=== PATIENT | male | born 1990 | race American Indian/Alaskan Native ===

== ENCOUNTER 2016-07-26 04:31 | Inpatient (IN) | payer MEDICARE, MEDICAID ==
[2016-07-26] MEDS ORDERED: Sodium Chloride 0.9% 1,000 ML IV ONE (04:42)
[2016-07-26] MEDS ORDERED: carBAMazepine 200 MG Cap.ER PO ONE ×2 (04:43→05:00)
--- NOTE | 2016-07-26 04:45 | EDM.PDOC ---
ED HPI NEURO - General Chief Complaint: Neurological Problem Stated Complaint: COMING BY AMB Time Seen by Provider: 07/26/16 04:40 Source of Information: Reports: EMS History Limitations: Reports: No limitations - History of Present Illness INITIAL COMMENTS - FREE TEXT/NARRATIVE: 26 yo [place] Male observed by Mom to have 3 seizures. PMHx. Epilepsy and takes Keppra and Tegretol. Pt. not taking Tegretol X 2 weeks and Has only one Keppra tab remaining. No head injury and No loss of urine or biting tongue Symptom Onset Date: 07/26/16 Symptom Onset Time: 03:00 Timing/Duration: Reports: Hour(s): Location (Neuro Complaint): Reports: generalized Severity: moderate Context, General: Reports: Other (non compliant with medication) Associated Symptoms: Reports: no other symptoms - Related Data Allergies/ADRs: Allergies Allergy/AdvReac Type Severity Reaction Status Date / Time amoxicillin [Amoxicillin] Allergy Rash Verified 07/26/16 04:33 blueberry [Blueberry] Allergy Rash Verified 07/26/16 04:33 fosphenytoin sodium Allergy Rash Verified 07/26/16 04:33 [From Cerebyx] Home Meds: Home Meds carBAMazepine [Carbamazepine] 300 mg PO BID 05/31/13 [History] levETIRAcetam [Levetiracetam] 1,000 mg PO BID 07/26/16 [History] Past Medical History - Past Health History Medical/Surgical History: Denies Medical/Surgical History Neurological History: Reports: Seizure Psychiatric History: Reports: Addiction Social & Family History - Family History Family Medical History: Unobtainable - Tobacco Use Smoking Status *Q: Never Smoker Second Hand Smoke Exposure: No - Alcohol Use Days Per Week of Alcohol Use: 0 - Recreational Drug Use Recreational Drug Use: No Drug Use in Last 12 Months: Yes Recreational Drug Type: Reports: Marijuana/Hashish Recreational Drug Use Frequency: Rarely - Living Situation & Occupation Living situation: Reports: with family Occupation: unemployed ED ROS GENERAL - Review of Systems Review Of Systems: See Below Constitutional: Reports: no symptoms HEENT: Reports: No symptoms Respiratory: Reports: No Symptoms Cardiovascular: Reports: No symptoms Endocrine: Reports: no symptoms GI/Abdominal: Reports: No symptoms : Reports: no symptoms Musculoskeletal: Reports: no symptoms Skin: Reports: no symptoms Neurological: Reports: Seizure Psychiatric: Reports: No symptoms Hematologic/Lymphatic: Reports: no symptoms Immunologic: Reports: no symptoms ED EXAM, NEURO - Physical Exam Exam: See Below Exam Limited By: No limitations General Appearance: alert, WD/WN, no apparent distress Eye Exam: bilateral eye: PERRL Ears: normal external exam Nose: normal inspection Throat/Mouth: Normal inspection, Normal lips Head Exam: atraumatic, normocephalic Neck: normal inspection, supple, non-tender, full range of motion Respiratory/Chest: no respiratory distress, lungs clear, normal breath sounds Cardiovascular: normal peripheral pulses, regular rate, rhythm GI/Abdominal: normal bowel sounds, soft, non tender Neurological: alert Back Exam: normal inspection Extremities: normal inspection, normal range of motion Psychiatric: normal affect Skin Exam: Warm, No rash Course - Vital Signs Text/Narrative:: Pt. had witnessed generalized seizure in ED lasting approx 45 seconds. Discussed case with Dr. Peter to admit Last Recorded V/S: Last Vital Signs Temp 36.2 C 07/26/16 04:33 Pulse 96 07/26/16 04:33 Resp 18 07/26/16 04:33 BP 107/65 07/26/16 04:33 Pulse Ox 99 07/26/16 04:33 - Orders/Labs/Meds Orders: Active Orders 24 hr Category Date Time Status CARBAMAZEPINE [REF] Stat Lab 07/26/16 04:50 Received KEPPRA [REF] Stat Lab 07/26/16 04:50 Received Sodium Chloride 0.9% [Normal Saline] 1,000 ml Med 07/26/16 04:42 Active IV .BOLUS Medication Orders Sodium Chloride (Normal Saline) 1,000 mls @ 999 mls/hr IV .BOLUS ONE Stop: 07/26/16 05:42 Last Admin: 07/26/16 05:03 Dose: 999 mls/hr Labs: Laboratory Tests 07/26/16 07/26/16 07/26/16 Range/Units 04:50 04:50 05:00 WBC 8.5 (5.0-10.0) 10^3/uL RBC 4.34 L (4.6-6.2) 10^6/uL Hgb 13.4 L (14.0-18.0) g/dL Hct 40.0 (40.0-54.0) % MCV 92.2 (80-100) fL MCH 30.9 (27.0-34.0) pg MCHC 33.5 (33.0-35.0) g/dL Plt Count 257 (150-450) 10^3/uL Neut % (Auto) 44.7 (42.2-75.2) % Lymph % (Auto) 38.1 (20.5-50.1) % [place] % (Auto) 11.0 H (2-8) % Eos % (Auto) 5.7 H (1.0-3.0) % Baso % (Auto) 0.5 (0.0-1.0) % Sodium 135 (135-145) mmol/L Potassium 3.7 (3.6-5.0) mmol/L Chloride 98 L (101-111) mmol/L Carbon Dioxide 26.0 (21.0-31.0) mmol/L Anion Gap 14.7 BUN 17 (7-18) mg/dL Creatinine 0.8 (0.6-1.3) mg/dL Est Cr Clr Drug Dosing TNP Estimated GFR (MDRD) > 60 BUN/Creatinine Ratio 21.25 Glucose 84 (74-105) mg/dL Calcium 8.2 L (8.4-10.2) mg/dl Total Bilirubin 0.5 (0.2-1.0) mg/dL AST 28 (10-42) IU/L ALT 30 (10-60) IU/L Alkaline Phosphatase 81 (42-121) IU/L Total Protein 7.4 (6.7-8.2) g/dl Albumin 4.0 (3.2-5.5) g/dl Globulin 3.4 Albumin/Globulin Ratio 1.18 Urine Color Yellow (YELLOW) Urine Appearance Clear (CLEAR) Urine pH 5.5 (5.0-9.0) Ur Specific [place] 1.015 (1.005-1.030) Urine Protein Trace H (NEGATIVE) Urine Glucose (UA) Negative (NEGATIVE) Urine Ketones Negative (NEGATIVE) Urine Occult Blood Trace-lysed H (NEGATIVE) Urine Nitrite Negative (NEGATIVE) Urine Bilirubin Negative (NEGATIVE) Urine Urobilinogen 1.0 (0.2-1.0) mg/dL Ur Leukocyte Esterase Negative (NEGATIVE) Urine RBC 0-5 /HPF Urine WBC 0-5 (0-5/HPF) /HPF Ur Epithelial Cells Few /HPF Urine Bacteria Few (0-FEW/HPF) /HPF Urine Opiates Screen (NEGATIVE) Ur Oxycodone Screen (NEGATIVE) Urine Methadone Screen (NEGATIVE) Ur Barbiturates Screen (NEGATIVE) U Tricyclic Antidepress (NEGATIVE) Ur Phencyclidine Scrn (NEGATIVE) Ur Amphetamine Screen (NEGATIVE) U Methamphetamines Scrn (NEGATIVE) Urine MDMA Screen (NEGATIVE) U Benzodiazepines Scrn (NEGATIVE) Urine Cocaine Screen (NEGATIVE) U Marijuana (THC) Screen (NEGATIVE) Ethyl Alcohol < 5 mg/dL 07/26/16 Range/Units 05:00 WBC (5.0-10.0) 10^3/uL RBC (4.6-6.2) 10^6/uL Hgb (14.0-18.0) g/dL Hct (40.0-54.0) % MCV (80-100) fL MCH (27.0-34.0) pg MCHC (33.0-35.0) g/dL Plt Count (150-450) 10^3/uL Neut % (Auto) (42.2-75.2) % Lymph % (Auto) (20.5-50.1) % [place] % (Auto) (2-8) % Eos % (Auto) (1.0-3.0) % Baso % (Auto) (0.0-1.0) % Sodium (135-145) mmol/L Potassium (3.6-5.0) mmol/L Chloride (101-111) mmol/L Carbon Dioxide (21.0-31.0) mmol/L Anion Gap BUN (7-18) mg/dL Creatinine (0.6-1.3) mg/dL Est Cr Clr Drug Dosing Estimated GFR (MDRD) BUN/Creatinine Ratio Glucose (74-105) mg/dL Calcium (8.4-10.2) mg/dl Total Bilirubin (0.2-1.0) mg/dL AST (10-42) IU/L ALT (10-60) IU/L Alkaline Phosphatase (42-121) IU/L Total Protein (6.7-8.2) g/dl Albumin (3.2-5.5) g/dl Globulin Albumin/Globulin Ratio Urine Color (YELLOW) Urine Appearance (CLEAR) Urine pH (5.0-9.0) Ur Specific Union (1.005-1.030) Urine Protein (NEGATIVE) Urine Glucose (UA) (NEGATIVE) Urine Ketones (NEGATIVE) Urine Occult Blood (NEGATIVE) Urine Nitrite (NEGATIVE) Urine Bilirubin (NEGATIVE) Urine Urobilinogen (0.2-1.0) mg/dL Ur Leukocyte Esterase (NEGATIVE) Urine RBC /HPF Urine WBC (0-5/HPF) /HPF Ur Epithelial Cells /HPF Urine Bacteria (0-FEW/HPF) /HPF Urine Opiates Screen Negative (NEGATIVE) Ur Oxycodone Screen Negative (NEGATIVE) Urine Methadone Screen Negative (NEGATIVE) Ur Barbiturates Screen Negative (NEGATIVE) U Tricyclic Antidepress Negative (NEGATIVE) Ur Phencyclidine Scrn Negative (NEGATIVE) Ur Amphetamine Screen Positive H (NEGATIVE) U Methamphetamines Scrn Positive H (NEGATIVE) Urine MDMA Screen Negative (NEGATIVE) U Benzodiazepines Scrn Negative (NEGATIVE) Urine Cocaine Screen Negative (NEGATIVE) U Marijuana (THC) Screen Positive H (NEGATIVE) Ethyl Alcohol mg/dL Meds: Medications Generic Name Dose Route Start Last Admin Trade Name Freq PRN Reason Stop Dose Admin Sodium Chloride 1,000 mls @ 999 mls/hr 07/26/16 04:42 07/26/16 05:03 Normal Saline IV 07/26/16 05:42 999 mls/hr .BOLUS ONE Administration Discontinued Medications Generic Name Dose Route Start Last Admin Trade Name Freq PRN Reason Stop Dose Admin Carbamazepine 300 mg 07/26/16 04:43 Tegretol Xr PO 07/26/16 04:44 ONETIME ONE Carbamazepine 400 mg 07/26/16 05:00 07/26/16 05:04 Tegretol Xr PO 07/26/16 05:01 400 mg ONETIME ONE Administration Lorazepam 1 mg 07/26/16 05:26 Ativan IVPUSH 07/26/16 05:27 ONETIME ONE Departure - Departure Time of Disposition: 05:32 Disposition: Admitted As Inpatient 68 Condition: fair Clinical Impression: Generalized convulsive epilepsy, Drug abuse, amphetamine type, Non compliance w medication regimen Forms: ED Department Discharge - My Orders Last 24 Hours: My Active Orders 07/26/16 04:42 Sodium Chloride 0.9% [Normal Saline] 1,000 ml IV .BOLUS 07/26/16 04:50 CARBAMAZEPINE [REF] Stat KEPPRA [REF] Stat - Assessment/Plan Last 24 Hours: My Active Orders 07/26/16 04:42 Sodium Chloride 0.9% [Normal Saline] 1,000 ml IV .BOLUS 07/26/16 04:50 CARBAMAZEPINE [REF] Stat KEPPRA [REF] Stat
[2016-07-26 05:15] LABS: CHLORIDE,CL 98 mmol/L (101-111); SODIUM,NA 135 mmol/L (135-145)
[2016-07-26] MEDS ORDERED: LORazepam 2 MG/ML Syringe ONE (05:25)
[2016-07-26] MEDS ORDERED: LORazepam 2 MG/ML Syringe IVPUSH ONE (05:26)
[2016-07-26] MEDS ORDERED: levETIRAcetam 500 MG in Sodium Chloride 0.9% 100 ML IV ONE ×2 (05:33→05:36)
--- NOTE | 2016-07-26 06:44 | PCM.HP ---
H&P History of Present Illness - General Date of Service: 07/26/16 Admit Problem/Dx: 26 yo [place] Male observed by Mom to have 3 seizures called ambulance and send to ED. In ED the ED attending also witnessed 1 seizure activity Source of Information: EMS, EMS notes reviewed, Old records History Limitations: Reports: Other (ptissleeping after getting ativan and all history in this notes are documented after revieweing EDNotes, past hospital admission and progress notes, discusing with ED physician) - History of Present Illness Initial Comments - Free Text/Narative: The patient is 26 yo [place] male with past medical history of seizure disorder on carbamazepine and Tegretol. Today observed by Mom to have 3 seizures at home at called ambulance and transfered to ED.The pt in ED noted to have 1 more episode of witnessed Seizure by ED physician and as per ED note Pt. did not taking Tegretol X 2 weeks and Has only one Keppra tab remaining in bottle. He had No head injury and No loss of urine or biting tongue. He has received the loading dose of Carbamazipine 1000 mg IV in ED and oral Tagretol. He was agitated in Ed and has received 2 dose of Ativan. Urine toxicology was positive for amphetamine, methamphetamine, and marijuana. Onset of Symptoms: Reports: today - Related Data Allergies/Adverse Reactions: Allergies Allergy/AdvReac Type Severity Reaction Status Date / Time amoxicillin [Amoxicillin] Allergy Rash Verified 07/26/16 04:33 blueberry [Blueberry] Allergy Rash Verified 07/26/16 04:33 fosphenytoin sodium Allergy Rash Verified 07/26/16 04:33 [From Cerebyx] Home Medications: Home Meds carBAMazepine [Carbamazepine] 300 mg PO BID 05/31/13 [History] levETIRAcetam [Levetiracetam] 1,000 mg PO BID 07/26/16 [History] Past Medical History - Past Health History Medical/Surgical History: Denies Medical/Surgical History HEENT History: Reports: None Cardiovascular History: Reports: None Respiratory History: Reports: None Gastrointestinal History: Reports: None Genitourinary History: Reports: None Musculoskeletal History: Reports: None Neurological History: Reports: Seizure Psychiatric History: Reports: Addiction Endocrine/Metabolic History: Reports: None Hematologic History: Reports: None Immunologic History: Reports: None Oncologic (Cancer) History: Reports: None Dermatologic History: Reports: None Social & Family History - Family History Family Medical History: Unobtainable - Tobacco Use Smoking Status *Q: Never Smoker Second Hand Smoke Exposure: No - Alcohol Use Days Per Week of Alcohol Use: 0 - Recreational Drug Use Recreational Drug Use: No Drug Use in Last 12 Months: Yes Recreational Drug Type: Reports: Marijuana/Hashish Recreational Drug Use Frequency: Rarely - Living Situation & Occupation Living situation: Reports: with family Occupation: unemployed H&P Review of Systems - Review of Systems: Review Of Systems: Unable To Obtain (due to pt factor, he is sleeping and could not wake hin up, has received ativan X 2 dose in ED) Exam - Exam Exam: See Below - Vital Signs Vital Signs: Last Vital Signs Temp 36.8 C 07/26/16 06:15 Pulse 106 H 07/26/16 06:15 Resp 16 07/26/16 06:15 BP 97/61 07/26/16 06:15 Pulse Ox 98 07/26/16 06:15 Weight: 68.039 kg - Exam Quality Assessment: DVT prophylaxis. No: supplemental oxygen, urinary catheter General: other (sleeping, could not wake him up) HEENT: Other (eyes closed, in deep sleep after getting 2 doses of Ativan) Lungs: Clear to auscultation. No: Crackles, Wheezing Cardiovascular: regular rate, regular rhythm, normal S1, normal S2 Abdomen: normal bowel sounds, soft. No: distention (Male) Exam: Deferred Rectal (Males) Exam: Deferred Back Exam: normal inspection Extremities: normal inspection. No: edema Skin: warm, dry, intact Neurological: other (unable evaluate, he is in deep sleep after receiving Ativan X 2 dose in ED) Neuro Extensive - Mental Status: other (unable evaluate, he is in deep sleep after receiving Ativan X 2 dose in ED) Neuro Extensive - Motor, Sensory, Reflexes: other (unable evaluate, he is in deep sleep after receiving Ativan X 2 dose in ED) Psychiatric: other (unable evaluate, he is in deep sleep after receiving Ativan X 2 dose in ED) - Patient Data Result Diagrams: 07/26/16 04:50 07/26/16 04:50 *Q Meaningful Use (ADM) - VTE *Q VTE Criteria *Q: - Stroke *Q Stroke Criteria *Q: - AMI *Q AMI Criteria *Q: - Problem List (1) Drug abuse, amphetamine type SNOMED Code(s): 82952881 ICD Code: F15.10 - OTHER STIMULANT ABUSE, UNCOMPLICATED Status: Acute Current Visit: Yes (2) Generalized convulsive epilepsy SNOMED Code(s): 16254043 ICD Code: G40.309 - GEN IDIOPATHIC EPILEPSY, NOT INTRACTABLE, W/O STAT EPI Status: Acute Current Visit: Yes (3) History of seizure disorder SNOMED Code(s): 097445841 ICD Code: Z86.69 - PERSONAL HISTORY OF DIS OF THE NERVOUS SYS AND SENSE ORGANS Status: Acute Current Visit: No (4) Mental status change SNOMED Code(s): 143139860 ICD Code: R41.82 - ALTERED MENTAL STATUS, UNSPECIFIED Status: Acute Current Visit: No Onset Date: 10/07/14 Problem List Initiated/Reviewed/Updated: Yes Assessment/Plan Comment:: This is a 26 yo Male noted to have 3 seizure activity observed by Mom and ambulance was called and brought to ED. The pt has PMHx. Epilepsy and takes Keppra and Tegretol. Pt. not taking Tegretol X 2 weeks and Has only one Keppra tab remaining. No head injury and No loss of urine or biting tongue. 1. Acute witnessed Seizure activity: The etiology is likly non-complainace and and use of Amphetamine may also have precipitated the current event The pt has H/O seizure and he is on Carbamazepine and Keppra but not taking them -He has received the loading dose of IV Keppra and also Tagretol in ED -His drug level for both carbamaziopine and Keppra were drawn and sent out ( will follow the level) -If he still having difficulty with taking oral Medication then will continue IV Keppra 2. Agitation: This is likely from drug use ,urine positive for Methamphetamine and Marijuna -Will continue Ativan and haldol as needed 3. Seizure disorder by history - Last episode earlier today . - If Unable to take po med due to change in mental status/agitation,then will continue Keppra IV 4. DVT prophylaxis: Continue SCD and heparin 5. GI prophylaxis: Continue IV Protonix 6. Code Status: He is currently at Full code, extremely sleepy will discuss when awake
[2016-07-26] MEDS ORDERED: Docusate Sodium 100 MG Cap PO PRN (07:10)
[2016-07-26] MEDS ORDERED: Acetaminophen 325 MG Tab PO PRN (07:10)
[2016-07-26] MEDS ORDERED: LORazepam 2 MG/ML Syringe IVPUSH PRN ×2 (07:25→10:35)
[2016-07-26] MEDS: levETIRAcetam 500 MG Tab PO SCH ×2 (09:42→20:36)
[2016-07-26] MEDS: carBAMazepine 200 MG Tab PO SCH ×3 (12:23→20:37)
[2016-07-26] MEDS: Sodium Chloride 0.9% 1,000 ML IV SCH (14:49)
[2016-07-27] MEDS: Sodium Chloride 0.9% 1,000 ML IV SCH ×3 (01:02→22:23)
[2016-07-27 07:29] LABS: CHLORIDE,CL 110 mmol/L (101-111); SODIUM,NA 137 mmol/L (135-145)
[2016-07-27] MEDS: levETIRAcetam 500 MG Tab PO SCH ×2 (10:32→22:36)
[2016-07-27] MEDS: carBAMazepine 200 MG Tab PO SCH ×3 (10:32→22:36)
[2016-07-27] MEDS ORDERED: Calcium Gluconate 1 GM in Sodium Chloride 0.9% 100 ML IV ONE (11:27)
--- NOTE | 2016-07-27 13:05 | PCM.PN ---
- General Info Date of Service: 07/27/16 Admission Dx/Problem (Free Text): 26 yo [place] Male observed by Mom to have 3 seizures called ambulance and send to ED. In ED the ED attending also witnessed 1 seizure activity Subjective Update: patient seems to have the slow mentation and to be a poor historian. His mother stated that he is usually like this. He denies headache, change in vision, fever , chills, nausea, vomiting, chest pain, shortness of breath, cough, abdominal pain, diarrhea, or symptoms, unilateral weakness, or any other symptoms. he was not able to tell me why he was not taking his Tegretol and Keppra. He he just stated that he usually travels a lot - Patient Data Vitals - most recent: Last Vital Signs Temp 36.4 C 07/27/16 10:58 Pulse 79 07/27/16 10:58 Resp 18 07/27/16 10:58 BP 96/56 L 07/27/16 10:58 Pulse Ox 99 07/27/16 10:58 Weight - most recent: 68.039 kg I&O - last 24 hours: Intake & Output 07/26/16 07/27/16 07/27/16 22:59 06:59 14:59 Intake Total 2351 701 1370 Output Total 530 Balance 2351 171 1370 Lab Results last 24 hrs: Laboratory Results - last 24 hr 07/27/16 Range/Units 06:49 Sodium 137 (135-145) mmol/L Potassium 4.0 (3.6-5.0) mmol/L Chloride 110 (101-111) mmol/L Carbon Dioxide 24.0 (21.0-31.0) mmol/L Anion Gap 7.0 BUN 9 (7-18) mg/dL Creatinine 0.7 (0.6-1.3) mg/dL Est Cr Clr Drug Dosing TNP Estimated GFR (MDRD) > 60 Glucose 85 (74-105) mg/dL Calcium 7.4 L (8.4-10.2) mg/dl Med Orders - Current: Current Medications Acetaminophen (Tylenol) 650 mg PO Q4H PRN PRN Reason: Pain (mild 1-3 )/fever Carbamazepine (Tegretol Tab) 200 mg PO TID GABRIELA Last Admin: 07/27/16 10:32 Dose: 200 mg Docusate Sodium (Colace) 100 mg PO DAILY PRN PRN Reason: Constipation Sodium Chloride (Normal Saline) 1,000 mls @ 100 mls/hr IV ASDIRECTED [facility] Last Admin: 07/27/16 11:02 Dose: 100 mls/hr Levetiracetam (Keppra) 1,000 mg PO BID [facility] Last Admin: 07/27/16 10:32 Dose: 1,000 mg Lorazepam (Ativan) 1 mg IVPUSH Q12H PRN PRN Reason: Agitation Discontinued Medications Carbamazepine (Tegretol Xr) 300 mg PO ONETIME ONE Stop: 07/26/16 04:44 Last Admin: 07/26/16 06:53 Dose: Not Given Carbamazepine (Tegretol Xr) 400 mg PO ONETIME ONE Stop: 07/26/16 05:01 Last Admin: 07/26/16 05:04 Dose: 400 mg Sodium Chloride (Normal Saline) 1,000 mls @ 999 mls/hr IV .BOLUS ONE Stop: 07/26/16 05:42 Last Admin: 07/26/16 05:03 Dose: 999 mls/hr Levetiracetam 500 mg/ Sodium (Chloride) 105 mls @ 400 mls/hr IV ONETIME ONE Stop: 07/26/16 05:47 Last Admin: 07/26/16 05:49 Dose: 400 mls/hr Levetiracetam 500 mg/ Sodium (Chloride) 105 mls @ 400 mls/hr IV ONETIME ONE Stop: 07/26/16 05:50 Last Admin: 07/26/16 18:54 Dose: Not Given Calcium Gluconate 1 gm/ Sodium (Chloride) 110 mls @ 100 mls/hr IV ONETIME ONE Stop: 07/27/16 12:32 Last Admin: 07/27/16 12:13 Dose: 100 mls/hr Lorazepam (Ativan) 1 mg IVPUSH ONETIME ONE Stop: 07/26/16 05:27 Last Admin: 07/26/16 05:30 Dose: 1 mg Lorazepam (Ativan) Confirm Administered Dose 2 mg .ROUTE .STK-MED ONE Stop: 07/26/16 05:26 Last Admin: 07/26/16 05:33 Dose: Not Given Lorazepam (Ativan) 1 mg IVPUSH ASDIRECTED PRN PRN Reason: Agitation - Exam General: alert, oriented (he knows where he is and the day of the month and year but did not know the month), cooperative, no acute distress. No: sedated, lethargic, obtunded HEENT: Pupils equal, Pupils reactive, EOMI, Mucous membr. moist/pink Neck: supple, trachea midline, no JVD Lungs: Clear to auscultation, Normal respiratory effort Cardiovascular: Regular Rate, Regular Rhythm Abdomen: bowel sounds present, soft, no tenderness, no distension. No: rigidity , rebound, guarding (Male) Exam: Deferred Back Exam: normal inspection, full range of motion Extremities: no edema, normal pulses, no tenderness/swelling, no clubbing, no cyanosis, no calf tenderness Skin: warm, dry, intact Wound/Incisions: healing well Neurological: no new focal deficit, normal speech, normal tone, strength equal bilateral, reflexes equal bilateral, sensation intact, cranial nerves intact Psy/Mental Status: alert, labile mood. No: agitated, suicidal ideation, homicidal ideation, hallucinations - Problem List Review Problem List Initiated/Reviewed/Updated: Yes - My Orders Last 24 Hours: My Active Orders 07/28/16 05:11 BASIC METABOLIC PANEL,BMP [CHEM] AM CBC WITH AUTO DIFF [HEME] AM - Plan Plan:: This is a 26 yo Male noted to have 3 seizure activity observed by Mom and ambulance was called and brought to ED. The pt has PMHx. Epilepsy and takes Keppra and Tegretol. Pt. not taking Tegretol X 2 weeks and Has only one Keppra tab remaining. No head injury and no urine incontinence or biting tongue. 1. Acute witnessed Seizure activity: The etiology is likly non-complainace and and use of Amphetamine may also have precipitated the current event The pt has H/O seizure and he is on Carbamazepine and Keppra but not taking them -He has received the loading dose of IV Keppra and also Tagretol in ED -His drug level for both carbamaziopine and Keppra were drawn and sent out ( will follow the level) -If he still having difficulty with taking oral Medication then will continue IV Keppra -we'll continue to treat him at the hospital for one more day and hopefully is a drug level is resulted from tomorrow 2. Agitation: he was calm this morning This was likely from drug use ,urine positive for Methamphetamine and Marijuna -Will continue Ativan and haldol as needed 3. hypokalemia We'll give one dose of calcium gluconate 1 g IV 4. Seizure disorder by history - Last episode Was yesterday in the ER. - Continue Keppra and Tegretol orally -He has appointment with Dr. Ravi, neurologist in next September. They are trying to get him in earlier. 5. DVT prophylaxis: Continue SCD and heparin 6. Code Status: He is currently at Full code, extremely sleepy will discuss when awake
[2016-07-28 06:52] LABS: CHLORIDE,CL 106 mmol/L (101-111); SODIUM,NA 138 mmol/L (135-145)
[2016-07-28] MEDS: levETIRAcetam 500 MG Tab PO SCH (09:03)
[2016-07-28] MEDS: carBAMazepine 200 MG Tab PO SCH ×2 (09:04→13:34)
[2016-07-28 11:08] VITALS: BP 93/51
--- NOTE | 2016-07-28 14:58 | PN ---
DATE: 07/28/2016 SUBJECTIVE: Mr. Garcia is 26-year-old, , who was admitted here because of episodes of seizure. Since admission here, there is no recurrence of the seizure in the medical-surgical floor except that in the emergency room. He told us that he has been traveling a lot and has not been bringing with him his medications. Currently, he denies any headache or any dizziness. No chest pain, shortness of breath. He was able to tolerate his meals with no nausea or no abdominal pain. He had a bowel movement. SUBJECTIVE: Vital signs: Latest blood pressure 93/51, heart rate of 90 beats per minute, respirations 20 breaths per minute, oxygen saturation 100%, temperature 36.6. General appearance: Awake, in no distress. Chest: Symmetric chest expansion. Lungs: Bilateral air entry. CVS: Regular rate and rhythm. Abdomen: Soft, normoactive bowel sounds. Neurologic: No focal deficits. No pronator drift. Equal hand algology teacher bilaterally. Psychiatric: No behavioral disturbances. LABORATORY DATA: CBC; hemoglobin 12.4, hematocrit 37.2. BMP showed a total calcium of 7.8, and an albumin of 3.4. ASSESSMENT AND PLAN: 1. Episode of seizure secondary to noncompliance of medication. The patient has been re-initiated on his carbamazepine and Tegretol since admission. There has been no recurrence. We will continue this and he was advised to be compliant to his medications. On review of records, he used to see Dr. Ravi in the past and has been on carbamazepine 300 twice a day. 2. Agitation, resolved. 3. Hypokalemia, resolved. 4. Deep vein thrombosis prophylaxis. He is on anti-embolic devices. 5. Anemia. Hemoglobin latest is 12.4. No active bleeding for now. I advised him to be monitored as outpatient. The patient will be discharged back home with his mother. [facility] /[id number] [facility]DRamses
--- NOTE | 2016-07-31 08:32 | DISCH ---
DIAGNOSES: 1. Episode of seizure. 2. History of epilepsy. 3. Noncompliance. BRIEF HISTORY AND PHYSICAL: The patient is a 26-year-old , was brought in because of episodes of 3 seizures. Apparently, patient has history of seizure disorder on carbamazepine and Tegretol, however. He reports that he travels a lot and does not bring his medications with him. Otherwise, no recent head injury. No stool or urine incontinence. No tongue biting. On admission, documented vital signs showed blood pressure of 97/61, heart rate of 106 beats per minute, respirations 16 breaths per minute, oxygen saturation 98%, temperature 36.8. PHYSICAL EXAMINATION: Documented physical exam showed drowsy patient, unable to do a complete neuro exam after receiving 2 doses of Ativan in the emergency room. LABORATORY DATA: Workup done during hospitalization; admitting CBC showed WBC of 8, hemoglobin 13.4, platelets 257. Urine toxicology showed positive for amphetamine, methamphetamine, marijuana. Ethyl alcohol less than 5. Carbamazepine less than 2. Urinalysis, no urine WBC. Discharge CBC showed WBC of 7.3, hemoglobin of 12.4, total calcium 7.8. BRIEF HOSPITAL COURSE: The patient was admitted in medical-surgical bed. He was given a dose of Ativan in the emergency room. He was reinitiated on his antiseizure medications. He got IV Keppra and Tegretol. For the agitation, he was started on Ativan and Haldol as needed. DVT prophylaxis with heparin and GI prophylaxis with Protonix. Subsequent hospital day, there has been no recurrence of the seizure while in the hospital. Agitation has started to subside. He was noted to be hypokalemic, which was replaced. He remained hemodynamically stable. His latest hemoglobin showed 12.4. No active bleeding. DISCHARGE EXAM: Vital Signs: Showed blood pressure 93/51, heart rate of 90 beats per minute, respirations 20 breaths per minute, oxygen saturation 100%, temperature 36.6. DISCHARGE INSTRUCTIONS: The patient is stable to be discharged home. No driving. Emphasized compliance to medications. To come back to the emergency room if emergent health concerns. Follow up with provider within 1 week from discharge. [facility] /[id number]
== END 2016-07-28 15:05 | disposition home or self-care (01) | DRG 101 ==
LOC: DL.ED 04:31 → DL.MS 06:11 → UNDOADMIN 06:11 → DL.MS 07:10
PROVIDERS: ADMIT Internal Medicine Nephrology; ATTEND Internal Medicine Nephrology
DX: G40.409 Other generalized epilepsy and epileptic syndromes, not intractable, without status epilepticus (principal); G40.909 Epilepsy, unspecified, not intractable, without status epilepticus; Z91.14 Patient's other noncompliance with medication regimen; F19.10 Other psychoactive substance abuse, uncomplicated; E87.6 Hypokalemia; R45.1 Restlessness and agitation; D64.9 Anemia, unspecified
CPT/HCPCS: 36415; 80053; 80156; 80177; 80305; 81001; 85025; 96361; 96374; 96375; 99285 ×2; A9270; G0480; J1953; J2060; J7030; J7050; 80048; 82040; J0610

== ENCOUNTER 2016-11-17 23:06 | Emergency (ER) | payer MEDICARE, MEDICAID ==
[2016-11-18 00:21] LABS: CHLORIDE,CL 105 mmol/L (101-111); SODIUM,NA 140 mmol/L (135-145)
[2016-11-18 01:05] VITALS: BP 111/67
[2016-11-18] MEDS ORDERED: Acetaminophen 325 MG Tab PO ONE (01:25)
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
== END 2016-11-18 01:34 | disposition home or self-care (01) ==
LOC: DL.ED 23:06
DX: S50.311A Abrasion of right elbow, initial encounter (principal); S80.212A Abrasion, left knee, initial encounter; S80.211A Abrasion, right knee, initial encounter; F17.210 Nicotine dependence, cigarettes, uncomplicated; Z88.1 Allergy status to other antibiotic agents; Z88.8 Allergy status to other drugs, medicaments and biological substances; Y04.0XXA Assault by unarmed brawl or fight, initial encounter; S06.9X1A Unspecified intracranial injury with loss of consciousness of 30 minutes or less, initial encounter; M54.2 Cervicalgia
CPT/HCPCS: 36415; 70450; 70486; 71101; 72125; 80053; 85025; 99282; 99285; A9270; G0480

== ENCOUNTER 2016-11-22 01:04 | Emergency (ER) | payer MEDICARE, MEDICAID ==
[2016-11-22 01:12] VITALS: BP 120/77
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
[2016-11-22 01:40] LABS: CHLORIDE,CL 106 mmol/L (101-111); SODIUM,NA 143 mmol/L (135-145)
[2016-11-22 01:44] LABS: ACETAMINOPHEN < 10.0
[2016-11-22] MEDS ORDERED: Ketorolac 30 MG/ML SDV IM ONE (02:18)
== END 2016-11-22 02:45 | disposition home or self-care (01) ==
LOC: DL.ED 01:04
DX: S20.212D Contusion of left front wall of thorax, subsequent encounter (principal); Z88.1 Allergy status to other antibiotic agents; Z91.018 Allergy to other foods; Z88.8 Allergy status to other drugs, medicaments and biological substances; Y09 Assault by unspecified means
CPT/HCPCS: 71101; 80053; 80177; 80305; 81001; 83735; 85025; 96372; 99283; G0480; J1885; 36415

== ENCOUNTER 2017-01-23 11:41 | Emergency (ER) | payer MEDICARE, MEDICAID ==
[2017-01-23 12:31] VITALS: BP 112/66
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
== END 2017-01-23 13:24 | disposition home or self-care (01) ==
LOC: DL.ED 11:41
DX: S20.211A Contusion of right front wall of thorax, initial encounter (principal); J06.9 Acute upper respiratory infection, unspecified; G40.909 Epilepsy, unspecified, not intractable, without status epilepticus; Z88.1 Allergy status to other antibiotic agents; Z88.8 Allergy status to other drugs, medicaments and biological substances; Y04.0XXA Assault by unarmed brawl or fight, initial encounter
CPT/HCPCS: 99283

== ENCOUNTER 2017-02-21 08:40 | Emergency (ER) | payer MEDICARE, MEDICAID ==
[2017-02-21] MEDS ORDERED: Sodium Chloride 0.9% 1,000 ML IV ONE (08:48)
[2017-02-21] MEDS ORDERED: Sodium Chloride 0.9% 10 ML Syringe FLUSH PRN (08:48)
--- NOTE | 2017-02-21 08:48 | EDM.PDOC ---
ED HPI GENERAL MEDICAL PROBLEM - General Chief Complaint: Neurological Problem Stated Complaint: BY AMBULANCE Time Seen by Provider: 02/21/17 08:47 Source of Information: Reports: Patient, EMS, EMS Notes Reviewed, RN, RN Notes Reviewed History Limitations: Reports: No Limitations - History of Present Illness INITIAL COMMENTS - FREE TEXT/NARRATIVE: Mother of patient called the ER and stated her son was having seizures. Patient does have a seizure disorder, but Mom is concerned that the patient was out late last night and has been ingesting drugs. Patient arrives per [facility]. He states he was having seizures this morning, denies any drug or alcohol use. He states he has not missed any doses of Keppra. He denies falling or injuring himself during seizure. He denies any further problems. Onset: Today, Sudden Headache Pain Score (Numeric/FACES): 6 - Related Data Allergies Allergy/AdvReac Type Severity Reaction Status Date / Time amoxicillin [Amoxicillin] Allergy Rash Verified 02/21/17 08:54 blueberry [Blueberry] Allergy Rash Verified 02/21/17 08:54 fosphenytoin sodium Allergy Rash Verified 02/21/17 08:54 [From Cerebyx] Home Meds: Home Meds levETIRAcetam [Keppra] 1,000 mg PO BID #60 tablet 07/28/16 [Rx] Past Medical History - Past Health History Medical/Surgical History: Denies Medical/Surgical History HEENT History: Reports: None Cardiovascular History: Reports: None Respiratory History: Reports: None Gastrointestinal History: Reports: None Genitourinary History: Reports: None Musculoskeletal History: Reports: None Neurological History: Reports: Seizure Psychiatric History: Reports: Addiction Endocrine/Metabolic History: Reports: None Hematologic History: Reports: None Immunologic History: Reports: None Oncologic (Cancer) History: Reports: None Dermatologic History: Reports: None Social & Family History - Family History Family Medical History: Unobtainable - Tobacco Use Smoking Status *Q: Never Smoker Years of Tobacco use: 5 Packs/Tins Daily: 1 Second Hand Smoke Exposure: Yes - Alcohol Use Days Per Week of Alcohol Use: 0 - Recreational Drug Use Recreational Drug Use: No Drug Use in Last 12 Months: No Recreational Drug Type: Reports: Marijuana/Hashish Recreational Drug Use Frequency: Rarely - Living Situation & Occupation Living situation: Reports: with Family Occupation: Unemployed ED ROS GENERAL - Review of Systems Review Of Systems: ROS reveals no pertinent complaints other than HPI. - Physical Exam Exam: See Below General Appearance: Alert, WD/WN, No Apparent Distress Eye Exam: Bilateral Eye: PERRL (Pupils size 7) Ears: Normal External Exam, Hearing Grossly Normal Nose: Normal Inspection Throat/Mouth: Normal Inspection, Normal Voice, No Airway Compromise Head Exam: Atraumatic, Normocephalic Neck: Normal Inspection, Supple, Non-Tender, Full Range of Motion Respiratory/Chest: No Respiratory Distress, Lungs Clear, Normal Breath Sounds, No Accessory Muscle Use, Chest Non-Tender Cardiovascular: Normal Peripheral Pulses, Regular Rate, Rhythm, No Edema, No Gallop, No JVD, No Murmur, No Rub GI/Abdominal: Normal Bowel Sounds, Soft, Non-Tender, No Organomegaly, No Distention, No Abnormal Bruit, No Mass (Male) Exam: Deferred Rectal (Males) Exam: Deferred Neuro Exam (Abbreviated): Alert, Oriented, Normal Cognition, No Motor/Sensory Deficits Back Exam: Normal Inspection, Full Range of Motion Extremities: Normal Inspection, Normal Range of Motion, Non-Tender, No Pedal Edema, Normal Capillary Refill Psychiatric: Normal Mood, Flat Affect Skin Exam: Warm, Dry, Intact, Normal Color, No Rash Course - Vital Signs Last Recorded V/S: Last Vital Signs Temp 99.6 F 02/21/17 08:42 Pulse 109 H 02/21/17 08:42 Resp 16 02/21/17 08:42 BP 106/52 L 02/21/17 08:42 Pulse Ox 100 02/21/17 08:42 - Orders/Labs/Meds Orders: Active Orders 24 hr Category Date Time Status Peripheral IV Care [RC] . DIRECTED Care 02/21/17 08:48 Active Sodium Chloride 0.9% [Normal Saline] 1,000 ml Med 02/21/17 08:48 Active IV .BOLUS Sodium Chloride 0.9% [Saline Flush] Med 02/21/17 08:48 Active 10 ml FLUSH ASDIRECTED PRN Peripheral IV Insertion Adult [OM.PC] Stat Oth 02/21/17 08:48 Ordered Medication Orders Sodium Chloride (Normal Saline) 1,000 mls @ 999 mls/hr IV .BOLUS ONE Stop: 02/21/17 09:48 Last Admin: 02/21/17 09:17 Dose: 999 mls/hr Sodium Chloride (Saline Flush) 10 ml FLUSH ASDIRECTED PRN PRN Reason: Keep Vein Open Last Admin: 02/21/17 09:18 Dose: 10 ml Labs: Laboratory Tests 02/21/17 02/21/17 02/21/17 Range/Units 09:02 09:02 09:12 WBC 7.1 (5.0-10.0) 10^3/uL RBC 4.39 L (4.6-6.2) 10^6/uL Hgb 13.4 L (14.0-18.0) g/dL Hct 39.8 L (40.0-54.0) % MCV 90.7 (80-100) fL MCH 30.5 (27.0-34.0) pg MCHC 33.7 (33.0-35.0) g/dL Plt Count 233 (150-450) 10^3/uL Neut % (Auto) 76.6 H (42.2-75.2) % Lymph % (Auto) 10.9 L (20.5-50.1) % [place] % (Auto) 7.8 (2-8) % Eos % (Auto) 4.1 H (1.0-3.0) % Baso % (Auto) 0.6 (0.0-1.0) % Sodium 136 (135-145) mmol/L Potassium 3.6 (3.6-5.0) mmol/L Chloride 100 L (101-111) mmol/L Carbon Dioxide 20.0 L (21.0-31.0) mmol/L Anion Gap 19.6 BUN 12 (7-18) mg/dL Creatinine 1.0 (0.6-1.3) mg/dL Est Cr Clr Drug Dosing 87.97 mL/min Estimated GFR (MDRD) > 60 BUN/Creatinine Ratio 12.00 Glucose 85 (74-105) mg/dL Calcium 8.9 (8.4-10.2) mg/dl Total Bilirubin 1.0 (0.2-1.0) mg/dL AST 39 (10-42) IU/L ALT 34 (10-60) IU/L Alkaline Phosphatase 77 (42-121) IU/L Total Protein 7.8 (6.7-8.2) g/dl Albumin 4.4 (3.2-5.5) g/dl Globulin 3.4 Albumin/Globulin Ratio 1.29 Urine Color (YELLOW) Urine Appearance (CLEAR) Urine pH (5.0-9.0) Ur Specific [place] (1.005-1.030) Urine Protein (NEGATIVE) Urine Glucose (UA) (NEGATIVE) Urine Ketones (NEGATIVE) Urine Occult Blood (NEGATIVE) Urine Nitrite (NEGATIVE) Urine Bilirubin (NEGATIVE) Urine Urobilinogen (0.2-1.0) mg/dL Ur Leukocyte Esterase (NEGATIVE) Urine RBC /HPF Urine WBC (0-5/HPF) /HPF Ur Epithelial Cells /HPF Urine Bacteria (0-FEW/HPF) /HPF Urine Mucus /LPF Urine Other Urine Opiates Screen Negative (NEGATIVE) Ur Oxycodone Screen Negative (NEGATIVE) Urine Methadone Screen Negative (NEGATIVE) Ur Barbiturates Screen Negative (NEGATIVE) U Tricyclic Antidepress Negative (NEGATIVE) Ur Phencyclidine Scrn Negative (NEGATIVE) Ur Amphetamine Screen Positive H (NEGATIVE) U Methamphetamines Scrn Positive H (NEGATIVE) Urine MDMA Screen Negative (NEGATIVE) U Benzodiazepines Scrn Negative (NEGATIVE) Urine Cocaine Screen Negative (NEGATIVE) U Marijuana (THC) Screen Positive H (NEGATIVE) Ethyl Alcohol < 5 mg/dL 02/21/17 Range/Units 09:12 WBC (5.0-10.0) 10^3/uL RBC (4.6-6.2) 10^6/uL Hgb (14.0-18.0) g/dL Hct (40.0-54.0) % MCV (80-100) fL MCH (27.0-34.0) pg MCHC (33.0-35.0) g/dL Plt Count (150-450) 10^3/uL Neut % (Auto) (42.2-75.2) % Lymph % (Auto) (20.5-50.1) % [place] % (Auto) (2-8) % Eos % (Auto) (1.0-3.0) % Baso % (Auto) (0.0-1.0) % Sodium (135-145) mmol/L Potassium (3.6-5.0) mmol/L Chloride (101-111) mmol/L Carbon Dioxide (21.0-31.0) mmol/L Anion Gap BUN (7-18) mg/dL Creatinine (0.6-1.3) mg/dL Est Cr Clr Drug Dosing mL/min Estimated GFR (MDRD) BUN/Creatinine Ratio Glucose (74-105) mg/dL Calcium (8.4-10.2) mg/dl Total Bilirubin (0.2-1.0) mg/dL AST (10-42) IU/L ALT (10-60) IU/L Alkaline Phosphatase (42-121) IU/L Total Protein (6.7-8.2) g/dl Albumin (3.2-5.5) g/dl Globulin Albumin/Globulin Ratio Urine Color Yellow (YELLOW) Urine Appearance Slightly cloudy (CLEAR) Urine pH 5.5 (5.0-9.0) Ur Specific [place] 1.025 (1.005-1.030) Urine Protein 100 H (NEGATIVE) Urine Glucose (UA) Negative (NEGATIVE) Urine Ketones Negative (NEGATIVE) Urine Occult Blood Moderate H (NEGATIVE) Urine Nitrite Negative (NEGATIVE) Urine Bilirubin Negative (NEGATIVE) Urine Urobilinogen 0.2 (0.2-1.0) mg/dL Ur Leukocyte Esterase Negative (NEGATIVE) Urine RBC 5-10 H /HPF Urine WBC 0-5 (0-5/HPF) /HPF Ur Epithelial Cells Few /HPF Urine Bacteria Few (0-FEW/HPF) /HPF Urine Mucus Few H /LPF Urine Other See note Urine Opiates Screen (NEGATIVE) Ur Oxycodone Screen (NEGATIVE) Urine Methadone Screen (NEGATIVE) Ur Barbiturates Screen (NEGATIVE) U Tricyclic Antidepress (NEGATIVE) Ur Phencyclidine Scrn (NEGATIVE) Ur Amphetamine Screen (NEGATIVE) U Methamphetamines Scrn (NEGATIVE) Urine MDMA Screen (NEGATIVE) U Benzodiazepines Scrn (NEGATIVE) Urine Cocaine Screen (NEGATIVE) U Marijuana (THC) Screen (NEGATIVE) Ethyl Alcohol mg/dL Meds: Medications Generic Name Dose Route Start Last Admin Trade Name Freq PRN Reason Stop Dose Admin Sodium Chloride 1,000 mls @ 999 mls/hr 02/21/17 08:48 02/21/17 09:17 Normal Saline IV 02/21/17 09:48 999 mls/hr .BOLUS ONE Administration Sodium Chloride 10 ml 02/21/17 08:48 02/21/17 09:18 Saline Flush FLUSH 10 ml ASDIRECTED PRN Administration Keep Vein Open Departure - Departure Time of Disposition: 09:40 Disposition: Home, Self-Care 01 Condition: Fair Clinical Impression: Seizure, Methamphetamine abuse, Marijuana abuse, Drug abuse, amphetamine type - Discharge Information Instructions: Stimulant Use Disorder-Methamphetamines, Seizure, Adult, Easy-to- Read Forms: ED Department Discharge Additional Instructions: Refrain from drug use. Do not miss any doses of Keppra. Follow up with your primary care facility. - My Orders Last 24 Hours: My Active Orders 02/21/17 08:48 Peripheral IV Care [RC] . DIRECTED Sodium Chloride 0.9% [Normal Saline] 1,000 ml IV .BOLUS Sodium Chloride 0.9% [Saline Flush] 10 ml FLUSH ASDIRECTED PRN Peripheral IV Insertion Adult [OM.PC] Stat - Assessment/Plan Last 24 Hours: My Active Orders 02/21/17 08:48 Peripheral IV Care [RC] . DIRECTED Sodium Chloride 0.9% [Normal Saline] 1,000 ml IV .BOLUS Sodium Chloride 0.9% [Saline Flush] 10 ml FLUSH ASDIRECTED PRN Peripheral IV Insertion Adult [OM.PC] Stat
[2017-02-21 08:51] VITALS: BP 106/52
[2017-02-21 09:28] LABS: CHLORIDE,CL 100 mmol/L (101-111); SODIUM,NA 136 mmol/L (135-145)
== END 2017-02-21 10:24 | disposition home or self-care (01) ==
LOC: DL.ED 08:40
DX: G40.909 Epilepsy, unspecified, not intractable, without status epilepticus (principal); F12.10 Cannabis abuse, uncomplicated; F15.10 Other stimulant abuse, uncomplicated; Z88.1 Allergy status to other antibiotic agents; Z88.8 Allergy status to other drugs, medicaments and biological substances; Z91.018 Allergy to other foods
CPT/HCPCS: 36415; 80053; 80305; 81001; 85025; 96360; 99285; G0480; J7030; J7050

== ENCOUNTER 2017-05-22 20:59 | Emergency (ER) | payer MEDICARE, MEDICAID ==
[2017-05-22 21:03] VITALS: BP 134/86
[2017-05-22] MEDS ORDERED: levETIRAcetam 500 MG in Sodium Chloride 0.9% 100 ML IV ONE (21:13)
--- NOTE | 2017-05-22 21:20 | EDM.PDOC ---
ED HPI GENERAL MEDICAL PROBLEM - General Chief Complaint: Neurological Problem Stated Complaint: CAME BY AMBULANCE, SEIZURES Time Seen by Provider: 05/22/17 21:17 Source of Information: Reports: EMS, Family History Limitations: Reports: Altered Mental Status - History of Present Illness INITIAL COMMENTS - FREE TEXT/NARRATIVE: This 27 yo male patient was brought to the ED by [facility] due to multiple seizures today. The patient's family reports that the patient had a seizure prior to calling the ambulance just after he got home from a friends house, had a second seizure at the house (causing the family to call the ambulance) and had a seizure while in the ambulance. The patient's mother reports the patient has a known seizure disorder and has been taking his medications as prescribed. The patient reports he smoked marijuana this morning and snorted some "white stuff" from his Auntie. The patient also reports he was eating, when he had a seizure and hit his head. The patient reports right sided head pain. Onset: Today, Sudden Duration: Intermittent Location: Reports: Generalized Severity: Moderate Improves with: Reports: None Worsens with: Reports: None Associated Symptoms: Reports: Seizure - Related Data Allergies Allergy/AdvReac Type Severity Reaction Status Date / Time amoxicillin [Amoxicillin] Allergy Rash Verified 02/21/17 08:54 blueberry [Blueberry] Allergy Rash Verified 02/21/17 08:54 fosphenytoin sodium Allergy Rash Verified 02/21/17 08:54 [From Cerebyx] Home Meds: Home Meds levETIRAcetam [Keppra] 1,000 mg PO BID #60 tablet 07/28/16 [Rx] Past Medical History - Past Health History Medical/Surgical History: Denies Medical/Surgical History HEENT History: Reports: None Cardiovascular History: Reports: None Respiratory History: Reports: None Gastrointestinal History: Reports: None Genitourinary History: Reports: None Musculoskeletal History: Reports: None Neurological History: Reports: Seizure Psychiatric History: Reports: Addiction Endocrine/Metabolic History: Reports: None Hematologic History: Reports: None Immunologic History: Reports: None Oncologic (Cancer) History: Reports: None Dermatologic History: Reports: None - Infectious Disease History Infectious Disease History: Reports: Chicken Pox - Past Surgical History Head Surgeries/Procedures: Reports: None Social & Family History - Family History Family Medical History: Unobtainable - Tobacco Use Smoking Status *Q: Never Smoker Years of Tobacco use: 5 Packs/Tins Daily: 1 Second Hand Smoke Exposure: Yes - Caffeine Use Caffeine Use: Reports: Soda - Alcohol Use Days Per Week of Alcohol Use: 0 - Recreational Drug Use Recreational Drug Use: No Drug Use in Last 12 Months: No Recreational Drug Type: Reports: Marijuana/Hashish Recreational Drug Use Frequency: Rarely - Living Situation & Occupation Living situation: Reports: with Family Occupation: Unemployed ED ROS GENERAL - Review of Systems Review Of Systems: ROS reveals no pertinent complaints other than HPI. - Physical Exam Exam: See Below Exam Limited By: Altered Mental Status (very slow to respond) General Appearance: Alert, WD/WN, Moderate Distress Eye Exam: Bilateral Eye: EOMI, PERRL (sluggish but reactive) Ears: Normal External Exam, Normal Canal, Hearing Grossly Normal, Normal TMs Nose: Normal Inspection, Normal Mucosa, No Blood Throat/Mouth: Normal Inspection, Normal Lips, Normal Teeth, Normal Gums, Normal Oropharynx, Normal Voice, No Airway Compromise Head Exam: Other (right sided scalp tenderness) Neck: Normal Inspection, Supple, Non-Tender, Full Range of Motion Respiratory/Chest: No Respiratory Distress, Lungs Clear, Normal Breath Sounds, No Accessory Muscle Use, Chest Non-Tender Cardiovascular: Normal Peripheral Pulses GI/Abdominal: Normal Bowel Sounds, Soft, Non-Tender, No Organomegaly, No Distention, No Abnormal Bruit, No Mass (Male) Exam: Deferred Rectal (Males) Exam: Deferred Neuro Exam (Abbreviated): Alert, Oriented, CN II-XII Intact, Slow to Respond ( postictal) Back Exam: Normal Inspection, Full Range of Motion, NT Extremities: Normal Inspection, Normal Range of Motion, Non-Tender, No Pedal Edema, Normal Capillary Refill Psychiatric: Flat Affect Skin Exam: Warm, Dry, Intact, Normal Color, No Rash Course - Vital Signs Last Recorded V/S: Last Vital Signs Temp 37.7 C 05/22/17 20:59 Pulse 67 05/22/17 20:59 Resp 18 05/22/17 20:59 BP 134/86 05/22/17 20:59 Pulse Ox 100 05/22/17 20:59 - Orders/Labs/Meds Orders: Active Orders 24 hr Category Date Time Status EKG 12 Lead [EKG Documentation Completion] [RC] STAT Care 05/22/17 21:06 Active KEPPRA [REF] Stat Lab 05/22/17 21:10 Received Labs: Laboratory Tests 05/22/17 05/22/17 05/22/17 Range/Units 21:10 21:10 21:19 WBC 9.8 (5.0-10.0) 10^3/uL RBC 4.37 L (4.6-6.2) 10^6/uL Hgb 13.2 L (14.0-18.0) g/dL Hct 40.3 (40.0-54.0) % MCV 92.2 (80-100) fL MCH 30.2 (27.0-34.0) pg MCHC 32.8 L (33.0-35.0) g/dL Plt Count 285 (150-450) 10^3/uL Neut % (Auto) 62.8 (42.2-75.2) % Lymph % (Auto) 27.0 (20.5-50.1) % [place] % (Auto) 7.6 (2-8) % Eos % (Auto) 2.3 (1.0-3.0) % Baso % (Auto) 0.3 (0.0-1.0) % Sodium 136 (135-145) mmol/L Potassium 3.6 (3.6-5.0) mmol/L Chloride 107 (101-111) mmol/L Carbon Dioxide 24.0 (21.0-31.0) mmol/L Anion Gap 8.6 BUN 11 (7-18) mg/dL Creatinine 0.7 (0.6-1.3) mg/dL Est Cr Clr Drug Dosing TNP Estimated GFR (MDRD) > 60 BUN/Creatinine Ratio 15.71 Glucose 97 (74-105) mg/dL Calcium 8.1 L (8.4-10.2) mg/dl Total Bilirubin 0.5 (0.2-1.0) mg/dL AST 27 (10-42) IU/L ALT 23 (10-60) IU/L Alkaline Phosphatase 85 (42-121) IU/L Total Protein 7.3 (6.7-8.2) g/dl Albumin 3.9 (3.2-5.5) g/dl Globulin 3.4 Albumin/Globulin Ratio 1.15 Urine Color (YELLOW) Urine Appearance (CLEAR) Urine pH (5.0-9.0) Ur Specific [place] (1.005-1.030) Urine Protein (NEGATIVE) Urine Glucose (UA) (NEGATIVE) Urine Ketones (NEGATIVE) Urine Occult Blood (NEGATIVE) Urine Nitrite (NEGATIVE) Urine Bilirubin (NEGATIVE) Urine Urobilinogen (0.2-1.0) mg/dL Ur Leukocyte Esterase (NEGATIVE) Urine RBC /HPF Urine WBC (0-5/HPF) /HPF Ur Epithelial Cells /HPF Urine Bacteria (0-FEW/HPF) /HPF Urine Opiates Screen Negative (NEGATIVE) Ur Oxycodone Screen Negative (NEGATIVE) Urine Methadone Screen Negative (NEGATIVE) Ur Barbiturates Screen Negative (NEGATIVE) U Tricyclic Antidepress Negative (NEGATIVE) Ur Phencyclidine Scrn Negative (NEGATIVE) Ur Amphetamine Screen Negative (NEGATIVE) U Methamphetamines Scrn Positive H (NEGATIVE) Urine MDMA Screen Negative (NEGATIVE) U Benzodiazepines Scrn Negative (NEGATIVE) Urine Cocaine Screen Negative (NEGATIVE) U Marijuana (THC) Screen Positive H (NEGATIVE) 05/22/17 Range/Units 21:19 WBC (5.0-10.0) 10^3/uL RBC (4.6-6.2) 10^6/uL Hgb (14.0-18.0) g/dL Hct (40.0-54.0) % MCV (80-100) fL MCH (27.0-34.0) pg MCHC (33.0-35.0) g/dL Plt Count (150-450) 10^3/uL Neut % (Auto) (42.2-75.2) % Lymph % (Auto) (20.5-50.1) % [place] % (Auto) (2-8) % Eos % (Auto) (1.0-3.0) % Baso % (Auto) (0.0-1.0) % Sodium (135-145) mmol/L Potassium (3.6-5.0) mmol/L Chloride (101-111) mmol/L Carbon Dioxide (21.0-31.0) mmol/L Anion Gap BUN (7-18) mg/dL Creatinine (0.6-1.3) mg/dL Est Cr Clr Drug Dosing Estimated GFR (MDRD) BUN/Creatinine Ratio Glucose (74-105) mg/dL Calcium (8.4-10.2) mg/dl Total Bilirubin (0.2-1.0) mg/dL AST (10-42) IU/L ALT (10-60) IU/L Alkaline Phosphatase (42-121) IU/L Total Protein (6.7-8.2) g/dl Albumin (3.2-5.5) g/dl Globulin Albumin/Globulin Ratio Urine Color Yellow (YELLOW) Urine Appearance Clear (CLEAR) Urine pH 6.0 (5.0-9.0) Ur Specific [place] 1.010 (1.005-1.030) Urine Protein Negative (NEGATIVE) Urine Glucose (UA) Negative (NEGATIVE) Urine Ketones Negative (NEGATIVE) Urine Occult Blood Negative (NEGATIVE) Urine Nitrite Negative (NEGATIVE) Urine Bilirubin Negative (NEGATIVE) Urine Urobilinogen 0.2 (0.2-1.0) mg/dL Ur Leukocyte Esterase Negative (NEGATIVE) Urine RBC 0-5 /HPF Urine WBC 0-5 (0-5/HPF) /HPF Ur Epithelial Cells Occasional /HPF Urine Bacteria Occasional (0-FEW/HPF) /HPF Urine Opiates Screen (NEGATIVE) Ur Oxycodone Screen (NEGATIVE) Urine Methadone Screen (NEGATIVE) Ur Barbiturates Screen (NEGATIVE) U Tricyclic Antidepress (NEGATIVE) Ur Phencyclidine Scrn (NEGATIVE) Ur Amphetamine Screen (NEGATIVE) U Methamphetamines Scrn (NEGATIVE) Urine MDMA Screen (NEGATIVE) U Benzodiazepines Scrn (NEGATIVE) Urine Cocaine Screen (NEGATIVE) U Marijuana (THC) Screen (NEGATIVE) Meds: Medications Discontinued Medications Generic Name Dose Route Start Last Admin Trade Name Freq PRN Reason Stop Dose Admin Levetiracetam 500 mg/ Sodium 105 mls @ 400 mls/hr 05/22/17 21:13 05/22/17 21: 28 Chloride IV 05/22/17 21:27 400 mls/hr ONETIME ONE Administration Departure - Departure Time of Disposition: 23:15 Disposition: Home, Self-Care 01 Clinical Impression: Methamphetamine use, Marijuana use, Seizure - Discharge Information Instructions: Cannabis Use Disorder, Finding Treatment for Addiction, Stimulant Use Disorder-Methamphetamines, Seizure, Adult, [id number] Forms: ED Department Discharge Care Plan Goals: The patient was advised of the examination, CT, EKG and lab results during the visit. The patient was given an IV dose of Keppra while in the ED. The patient was encouraged to continue to take his medications as directed. The patient should avoid drug and alcohol use. If the patient has any additional symptoms or concerns, the patient should follow-up with his primary care facility or return to the emergency department. - My Orders Last 24 Hours: My Active Orders 05/22/17 21:06 EKG 12 Lead [EKG Documentation Completion] [RC] STAT 05/22/17 21:10 KEPPRA [REF] Stat - Assessment/Plan Last 24 Hours: My Active Orders 05/22/17 21:06 EKG 12 Lead [EKG Documentation Completion] [RC] STAT 05/22/17 21:10 KEPPRA [REF] Stat
[2017-05-22 21:44] LABS: ANION GAP 8.6; CHLORIDE,CL 107 mmol/L (101-111); SODIUM,NA 136 mmol/L (135-145)
--- NOTE | 2017-05-26 13:37 | EKG ---
05/22/2017- LUPE SALAZAR - FINDINGS: A 12-lead EKG shows normal sinus rhythm with no significant ST elevation or ST depression noted. Nonspecific ST-T wave changes noted on leads V2 and V3. Borderline right axis deviation noted. [facility] /[id number]
== END 2017-05-22 23:54 | disposition home or self-care (01) ==
LOC: DL.ED 20:59
DX: R56.9 Unspecified convulsions (principal); F15.90 Other stimulant use, unspecified, uncomplicated; F12.90 Cannabis use, unspecified, uncomplicated; Z77.22 Contact with and (suspected) exposure to environmental tobacco smoke (acute) (chronic); Z88.1 Allergy status to other antibiotic agents; Z88.8 Allergy status to other drugs, medicaments and biological substances; Z91.018 Allergy to other foods
CPT/HCPCS: 70450; 80053; 80177; 80305; 81001; 85025; 93005; 96365; 99284; J1953; J7050; 36415; 93010

== ENCOUNTER 2018-01-22 07:57 | Emergency (ER) | payer MEDICARE, MEDICAID ==
--- NOTE | 2018-01-22 08:13 | EDM.PDOC ---
ED HPI GENERAL MEDICAL PROBLEM - General Chief Complaint: Neurological Problem Stated Complaint: AMBULANCE Time Seen by Provider: 01/22/18 08:13 Source of Information: Reports: Patient, EMS, Old Records, RN, RN Notes Reviewed History Limitations: Reports: No Limitations - History of Present Illness INITIAL COMMENTS - FREE TEXT/NARRATIVE: Pt arrives from home by [facility] with report that pt had a seizure this morning at home. Pt has history or seizure disorder/epilepsy. Pt states he has taken his Keppra and doesn't think he has missed any doses. He denies recent drug use. Medical records indicate Hx of methamphetamine and marijuana abuse. He denies recent or heavy alcohol use. Duration of the seizure is unknown, but EMS reports family/witnesses thought it was less than one minute. No description of the seizure activity is available. Pt is unable to provide any Hx of the seizure event. Onset: Today Duration: Resolved Prior to Arrival Location: Reports: Generalized Quality: Reports: Other (denies pain) Severity: Mild Improves with: Reports: None Worsens with: Reports: None Associated Symptoms: Reports: No Other Symptoms - Related Data Allergies Allergy/AdvReac Type Severity Reaction Status Date / Time amoxicillin [Amoxicillin] Allergy Rash Verified 01/22/18 08:05 blueberry [Blueberry] Allergy Rash Verified 01/22/18 08:05 fosphenytoin sodium Allergy Rash Verified 01/22/18 08:05 [From Cerebyx] Home Meds: Home Meds levETIRAcetam [Keppra] 1,000 mg PO BID #60 tablet 07/28/16 [Rx] Past Medical History - Past Health History Medical/Surgical History: Denies Medical/Surgical History HEENT History: Reports: None Cardiovascular History: Reports: None Respiratory History: Reports: None Gastrointestinal History: Reports: None Genitourinary History: Reports: None Musculoskeletal History: Reports: None Neurological History: Reports: Seizure Psychiatric History: Reports: Addiction Endocrine/Metabolic History: Reports: None Hematologic History: Reports: None Immunologic History: Reports: None Oncologic (Cancer) History: Reports: None Dermatologic History: Reports: None - Infectious Disease History Infectious Disease History: Reports: Chicken Pox - Past Surgical History Head Surgeries/Procedures: Reports: None Social & Family History - Family History Family Medical History: Unobtainable - Tobacco Use Smoking Status *Q: Current Every Day Smoker Years of Tobacco use: 1 Packs/Tins Daily: 0.5 Second Hand Smoke Exposure: No - Caffeine Use Caffeine Use: Reports: Soda, Tea - Recreational Drug Use Recreational Drug Type: Reports: Marijuana/Hashish, Methamphetamine - Living Situation & Occupation Living situation: Reports: with Family Occupation: Unemployed ED ROS GENERAL - Review of Systems Review Of Systems: ROS reveals no pertinent complaints other than HPI. - Physical Exam Exam: See Below Exam Limited By: No Limitations General Appearance: Alert, WD/WN, No Apparent Distress Eye Exam: Bilateral Eye: Normal Inspection Ears: Normal External Exam, Hearing Grossly Normal Nose: Normal Inspection, Normal Mucosa, No Blood Throat/Mouth: Normal Inspection, Normal Lips, Normal Teeth, Normal Gums, Normal Oropharynx, Normal Voice, No Airway Compromise Head Exam: Atraumatic, Normocephalic Neck: Normal Inspection, Supple, Non-Tender, Full Range of Motion. No: Lymphadenopathy (L), Lymphadenopathy (R) Respiratory/Chest: No Respiratory Distress, Lungs Clear, Normal Breath Sounds, No Accessory Muscle Use, Chest Non-Tender Cardiovascular: Normal Peripheral Pulses, Regular Rate, Rhythm, No Edema, No Gallop, No JVD, No Murmur, No Rub GI/Abdominal: Normal Bowel Sounds, Soft, Non-Tender, No Distention, No Abnormal Bruit (Male) Exam: Deferred Rectal (Males) Exam: Deferred Neuro Exam (Abbreviated): Alert, Oriented, CN II-XII Intact, Normal Cognition, Normal Gait, No Motor/Sensory Deficits Back Exam: Normal Inspection, Full Range of Motion. No: CVA Tenderness (L), CVA Tenderness (R) Extremities: Normal Inspection, Normal Range of Motion, Non-Tender, No Pedal Edema, Normal Capillary Refill Psychiatric: Normal Affect, Normal Mood Skin Exam: Warm, Dry, Intact, Normal Color, No Rash Course - Vital Signs Last Recorded V/S: Last Vital Signs Temp 36.9 C 01/22/18 08:02 Pulse 97 01/22/18 09:02 Resp 16 01/22/18 09:02 BP 108/73 01/22/18 09:02 Pulse Ox 97 01/22/18 09:02 - Orders/Labs/Meds Orders: Active Orders 24 hr Category Date Time Status Peripheral IV Care [RC] . DIRECTED Care 01/22/18 08:14 Active LEVETIRACETAM, S [REF] Routine Lab 01/22/18 08:24 Received Sodium Chloride 0.9% [Saline Flush] Med 01/22/18 08:14 Active 10 ml FLUSH ASDIRECTED PRN Peripheral IV Insertion Adult [OM.PC] Stat Oth 01/22/18 08:14 Ordered Medication Orders Sodium Chloride (Saline Flush) 10 ml FLUSH ASDIRECTED PRN PRN Reason: Keep Vein Open Last Admin: 01/22/18 08:33 Dose: 10 ml Labs: Laboratory Tests 01/22/18 01/22/18 01/22/18 Range/Units 08:24 08:24 08:40 WBC 14.5 H (5.0-10.0) 10^3/uL RBC 4.47 L (4.6-6.2) 10^6/uL Hgb 13.2 L (14.0-18.0) g/dL Hct 41.6 (40.0-54.0) % MCV 93.1 (80-100) fL MCH 29.5 (27.0-34.0) pg MCHC 31.7 L (33.0-35.0) g/dL Plt Count 266 (150-450) 10^3/uL Neut % (Auto) 65.9 (42.2-75.2) % Lymph % (Auto) 21.0 (20.5-50.1) % [place] % (Auto) 7.5 (2-8) % Eos % (Auto) 5.3 H (1.0-3.0) % Baso % (Auto) 0.3 (0.0-1.0) % Sodium 140 (135-145) mmol/L Potassium 3.0 L (3.6-5.0) mmol/L Chloride 101 (101-111) mmol/L Carbon Dioxide 17.0 L (21.0-31.0) mmol/L Anion Gap 25.0 BUN 10 (7-18) mg/dL Creatinine 0.8 (0.6-1.3) mg/dL Est Cr Clr Drug Dosing 109.01 mL/min Estimated GFR (MDRD) > 60 BUN/Creatinine Ratio 12.50 Glucose 100 (74-105) mg/dL Calcium 8.8 (8.4-10.2) mg/dl Total Bilirubin 0.7 (0.2-1.0) mg/dL AST 29 (10-42) IU/L ALT 17 (10-60) IU/L Alkaline Phosphatase 85 (42-121) IU/L Lactate Dehydrogenase 116 (91-180) IU/L Creatine Kinase 185 H (26-174) IU/L Total Protein 8.2 (6.7-8.2) g/dl Albumin 4.3 (3.2-5.5) g/dl Globulin 3.9 Albumin/Globulin Ratio 1.10 Urine Color Yellow (YELLOW) Urine Appearance Slightly cloudy (CLEAR) Urine pH 6.5 (5.0-9.0) Ur Specific [place] 1.015 (1.005-1.030) Urine Protein Negative (NEGATIVE) Urine Glucose (UA) Negative (NEGATIVE) Urine Ketones Negative (NEGATIVE) Urine Occult Blood Trace-intact H (NEGATIVE) Urine Nitrite Negative (NEGATIVE) Urine Bilirubin Negative (NEGATIVE) Urine Urobilinogen 0.2 (0.2-1.0) mg/dL Ur Leukocyte Esterase Negative (NEGATIVE) Urine RBC 0-5 /HPF Urine WBC 0-5 (0-5/HPF) /HPF Ur Epithelial Cells Rare /HPF Urine Bacteria Few (0-FEW/HPF) /HPF Urine Opiates Screen (NEGATIVE) Ur Oxycodone Screen (NEGATIVE) Urine Methadone Screen (NEGATIVE) Ur Barbiturates Screen (NEGATIVE) U Tricyclic Antidepress (NEGATIVE) Ur Phencyclidine Scrn (NEGATIVE) Ur Amphetamine Screen (NEGATIVE) U Methamphetamines Scrn (NEGATIVE) Urine MDMA Screen (NEGATIVE) U Benzodiazepines Scrn (NEGATIVE) Urine Cocaine Screen (NEGATIVE) U Marijuana (THC) Screen (NEGATIVE) 01/22/18 Range/Units 08:40 WBC (5.0-10.0) 10^3/uL RBC (4.6-6.2) 10^6/uL Hgb (14.0-18.0) g/dL Hct (40.0-54.0) % MCV (80-100) fL MCH (27.0-34.0) pg MCHC (33.0-35.0) g/dL Plt Count (150-450) 10^3/uL Neut % (Auto) (42.2-75.2) % Lymph % (Auto) (20.5-50.1) % [place] % (Auto) (2-8) % Eos % (Auto) (1.0-3.0) % Baso % (Auto) (0.0-1.0) % Sodium (135-145) mmol/L Potassium (3.6-5.0) mmol/L Chloride (101-111) mmol/L Carbon Dioxide (21.0-31.0) mmol/L Anion Gap BUN (7-18) mg/dL Creatinine (0.6-1.3) mg/dL Est Cr Clr Drug Dosing mL/min Estimated GFR (MDRD) BUN/Creatinine Ratio Glucose (74-105) mg/dL Calcium (8.4-10.2) mg/dl Total Bilirubin (0.2-1.0) mg/dL AST (10-42) IU/L ALT (10-60) IU/L Alkaline Phosphatase (42-121) IU/L Lactate Dehydrogenase (91-180) IU/L Creatine Kinase (26-174) IU/L Total Protein (6.7-8.2) g/dl Albumin (3.2-5.5) g/dl Globulin Albumin/Globulin Ratio Urine Color (YELLOW) Urine Appearance (CLEAR) Urine pH (5.0-9.0) Ur Specific [place] (1.005-1.030) Urine Protein (NEGATIVE) Urine Glucose (UA) (NEGATIVE) Urine Ketones (NEGATIVE) Urine Occult Blood (NEGATIVE) Urine Nitrite (NEGATIVE) Urine Bilirubin (NEGATIVE) Urine Urobilinogen (0.2-1.0) mg/dL Ur Leukocyte Esterase (NEGATIVE) Urine RBC /HPF Urine WBC (0-5/HPF) /HPF Ur Epithelial Cells /HPF Urine Bacteria (0-FEW/HPF) /HPF Urine Opiates Screen Negative (NEGATIVE) Ur Oxycodone Screen Negative (NEGATIVE) Urine Methadone Screen Negative (NEGATIVE) Ur Barbiturates Screen Negative (NEGATIVE) U Tricyclic Antidepress Negative (NEGATIVE) Ur Phencyclidine Scrn Negative (NEGATIVE) Ur Amphetamine Screen Positive H (NEGATIVE) U Methamphetamines Scrn Positive H (NEGATIVE) Urine MDMA Screen Negative (NEGATIVE) U Benzodiazepines Scrn Negative (NEGATIVE) Urine Cocaine Screen Negative (NEGATIVE) U Marijuana (THC) Screen Positive H (NEGATIVE) Meds: Medications Generic Name Dose Route Start Last Admin Trade Name Freq PRN Reason Stop Dose Admin Sodium Chloride 10 ml 01/22/18 08:14 01/22/18 08:33 Saline Flush FLUSH 10 ml ASDIRECTED PRN Administration Keep Vein Open Discontinued Medications Generic Name Dose Route Start Last Admin Trade Name Indigo PRN Reason Stop Dose Admin Levetiracetam 500 mg/ Sodium 105 mls @ 400 mls/hr 01/22/18 08:14 01/22/18 08: 32 Chloride IV 01/22/18 08:28 400 mls/hr ONETIME ONE Administration Sodium Chloride 1,000 mls @ 999 mls/hr 01/22/18 08:14 01/22/18 08:30 Normal Saline IV 01/22/18 09:14 999 mls/hr .BOLUS ONE Administration Departure - Departure Time of Disposition: 09:21 Disposition: Home, Self-Care 01 Condition: Good Clinical Impression: Seizure, Seizure disorder, Methamphetamine abuse, Marijuana use - Discharge Information *PRESCRIPTION DRUG MONITORING PROGRAM REVIEWED*: No *COPY OF PRESCRIPTION DRUG MONITORING REPORT IN PATIENT HARJIT: No Instructions: Epilepsy, [id number], Stimulant Use Disorder-Methamphetamines, Cannabis Use Disorder Forms: ED Department Discharge Additional Instructions: Take your Keppra as prescribed. Abstain from drug use. Follow up in clinic this week for recheck. - My Orders Last 24 Hours: My Active Orders 01/22/18 08:14 Peripheral IV Care [RC] . DIRECTED Sodium Chloride 0.9% [Saline Flush] 10 ml FLUSH ASDIRECTED PRN Peripheral IV Insertion Adult [OM.PC] Stat 01/22/18 08:24 LEVETIRACETAM, S [REF] Routine - Assessment/Plan Last 24 Hours: My Active Orders 01/22/18 08:14 Peripheral IV Care [RC] . DIRECTED Sodium Chloride 0.9% [Saline Flush] 10 ml FLUSH ASDIRECTED PRN Peripheral IV Insertion Adult [OM.PC] Stat 01/22/18 08:24 LEVETIRACETAM, S [REF] Routine
[2018-01-22] MEDS ORDERED: levETIRAcetam 500 MG in Sodium Chloride 0.9% 100 ML IV ONE (08:14)
[2018-01-22] MEDS ORDERED: Sodium Chloride 0.9% 1,000 ML IV ONE (08:14)
[2018-01-22] MEDS ORDERED: Sodium Chloride 0.9% 10 ML Syringe FLUSH PRN (08:14)
[2018-01-22 08:51] LABS: CHLORIDE,CL 101 mmol/L (101-111); SODIUM,NA 140 mmol/L (135-145)
[2018-01-22 09:04] VITALS: BP 108/73
== END 2018-01-22 10:06 | disposition home or self-care (01) ==
LOC: DL.ED 07:57
DX: G40.909 Epilepsy, unspecified, not intractable, without status epilepticus (principal); F15.10 Other stimulant abuse, uncomplicated; F11.90 Opioid use, unspecified, uncomplicated; F17.210 Nicotine dependence, cigarettes, uncomplicated; Z88.1 Allergy status to other antibiotic agents; Z91.018 Allergy to other foods
CPT/HCPCS: 36415; 80053; 80177; 80305; 81001; 82550; 83615; 85025; 96361; 96365; 99284; J1953; J7030; J7050

== ENCOUNTER 2020-08-06 01:28 | Emergency (ER) | payer MEDICARE, MEDICAID ==
[2020-08-06 02:06] LABS: ANION GAP 14.6 mEq/L (7-13); CHLORIDE,CL 106 mmol/L (98-107); SODIUM,NA 140 mmol/L (136-145)
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
[2020-08-06 02:44] VITALS: BP 105/73; PULSE 81
[2020-08-06] MEDS ORDERED: Acetaminophen 325 MG Tab PO ONE (02:50)
== END 2020-08-06 08:46 | disposition home or self-care (01) ==
LOC: DL.ED 01:28
DX: S00.12XA Contusion of left eyelid and periocular area, initial encounter (principal); F15.10 Other stimulant abuse, uncomplicated; Z72.0 Tobacco use; Z88.0 Allergy status to penicillin; Z91.018 Allergy to other foods; Z79.899 Other long term (current) drug therapy; Y04.2XXA Assault by strike against or bumped into by another person, initial encounter
CPT/HCPCS: 36415; 70450; 70486; 72125; 80053; 80305-QW; 80307; 85025; 99283; 99284-25; A9270-GY

== ENCOUNTER 2021-07-12 20:53 | Emergency (ER) | payer MEDICARE, MEDICAID ==
[2021-07-12 21:08] VITALS: BP 128/85
[2021-07-12 21:28] LABS: ANION GAP 13.3 mEq/L (7-13); CHLORIDE,CL 105 mmol/L (98-107); SODIUM,NA 141 mmol/L (136-145)
[2021-07-12] MEDS ORDERED: Ketorolac 30 MG/ML SDV IVPUSH ONE (21:48)
[2021-07-12] MEDS ORDERED: Ondansetron 4 MG/2 ML SDV IVPUSH ONE (21:49)
[2021-07-12] MEDS ORDERED: Sodium Chloride 0.9% 1,000 ML IV ONE (21:49)
[2021-07-12] MEDS ORDERED: Famotidine 20 MG/2 ML SDV IVPUSH ONE (21:49)
[2021-07-12 22:40] LABS: AMPHETAMINES,URINE NEGATIVE (NEGATIVE); BARBITURATES,URINE NEGATIVE (NEGATIVE); BENZODIAZEPINE,URINE NEGATIVE (NEGATIVE); MDMA (ECSTASY), URINE NEGATIVE (NEGATIVE); METHADONE,URINE NEGATIVE (NEGATIVE); METHAMPHETAMINES,URINE NEGATIVE (NEGATIVE); OPIATES,URINE NEGATIVE (NEGATIVE); OXYCODONE,URINE NEGATIVE (NEGATIVE); PHENCYCLIDINE,URINE NEGATIVE (NEGATIVE); TCA,URINE NEGATIVE (NEGATIVE)
[2021-07-12 22:48] LABS: CORONAVIRUS COVID-19 NAA NEGATIVE (NEGATIVE)
[2021-07-12 23:25] VITALS: PULSE 78
== END 2021-07-12 23:10 | disposition home or self-care (01) ==
LOC: DL.ED 20:53
DX: R51.9 Headache, unspecified (principal); G40.909 Epilepsy, unspecified, not intractable, without status epilepticus; Z88.0 Allergy status to penicillin; Z91.018 Allergy to other foods; Z88.8 Allergy status to other drugs, medicaments and biological substances; Z20.822 Contact with and (suspected) exposure to COVID-19; Z79.899 Other long term (current) drug therapy
CPT/HCPCS: 0240U; 36415; 70450; 80053; 80305; 80307; 81003; 85025; 96374; 96375; 99285; J1885; J2405; J3490; J7030; 99284

== ENCOUNTER 2021-10-05 00:41 | Emergency (ER) | payer MEDICARE, MEDICAID ==
[2021-10-05 02:06] VITALS: BP 108/70; PULSE 74
== END 2021-10-05 03:42 | disposition home or self-care (01) ==
LOC: DL.ED 00:41
DX: S02.2XXA Fracture of nasal bones, initial encounter for closed fracture (principal); Z88.0 Allergy status to penicillin; Z88.8 Allergy status to other drugs, medicaments and biological substances; Y04.0XXA Assault by unarmed brawl or fight, initial encounter
CPT/HCPCS: 70450; 70486; 99282; 99284-25

== ENCOUNTER 2022-05-23 13:30 | Observation (INO) | payer MEDICARE, MEDICAID ==
[2022-05-23] MEDS ORDERED: Sodium Chloride 0.9% 10 ML Syringe FLUSH PRN (15:21)
[2022-05-23] MEDS ORDERED: MVI, Adult with Vitamin K 10 ML, Thiamine 100 MG, Folic Acid 1 MG in Lactated Ringers 1... IV ONE ×4 (15:21)
[2022-05-23] MEDS ORDERED: Ondansetron 4 MG/2 ML SDV IV ONE (15:21)
[2022-05-23] MEDS ORDERED: levETIRAcetam in NaCl (iso-os) 1,500 MG in Premix Bag 1 BAG IV ONE ×2 (15:38)
[2022-05-23 15:52] LABS: AMPHETAMINES,URINE NEGATIVE (NEGATIVE); BARBITURATES,URINE NEGATIVE (NEGATIVE); BENZODIAZEPINE,URINE NEGATIVE (NEGATIVE); MDMA (ECSTASY), URINE NEGATIVE (NEGATIVE); METHADONE,URINE NEGATIVE (NEGATIVE); METHAMPHETAMINES,URINE NEGATIVE (NEGATIVE); OPIATES,URINE NEGATIVE (NEGATIVE); OXYCODONE,URINE NEGATIVE (NEGATIVE); PHENCYCLIDINE,URINE NEGATIVE (NEGATIVE); TCA,URINE NEGATIVE (NEGATIVE)
[2022-05-23 15:54] LABS: PTT,PARTIAL THROMBOPLSTIN TIME 22.1 SEC (22.0-34.0)
[2022-05-23 16:03] LABS: ACETAMINOPHEN 0 ug/mL (10-30 (Therapeutic)); ANION GAP 15.8 mEq/L (7-13); CHLORIDE,CL 115 mmol/L (98-107); SODIUM,NA 150 mmol/L (136-145)
[2022-05-23] MEDS ORDERED: LORazepam 2 MG/ML SDV IVPUSH ONE (16:04)
[2022-05-23 16:07] LABS: ESTIMATED GFR 120 mL/min (>=60)
[2022-05-23] MEDS ORDERED: Dextrose 5% in Water 1,000 ML IV SCH (16:45)
[2022-05-23] MEDS ORDERED: Albuterol/Ipratropium 3.0-0.5 MG/3 ML Neb Soln NEB PRN (19:06)
[2022-05-23] MEDS ORDERED: Morphine 2 MG/ML SYRINGE IVPUSH PRN (19:06)
[2022-05-23] MEDS ORDERED: Thiamine 200 MG in Sodium Chloride 0.9% 100 ML IV ONE ×3 (19:10→22:30)
[2022-05-23] MEDS ORDERED: traMADol 50 MG Tab PO PRN (19:14)
[2022-05-23] MEDS ORDERED: hydrALAZINE 20 MG/ML SDV IVPUSH PRN (19:15)
[2022-05-23] MEDS ORDERED: Lactated Ringers 1,000 ML IV SCH (19:15)
[2022-05-23] MEDS ORDERED: Naproxen 250 MG Tab PO PRN (19:23)
[2022-05-23] MEDS ORDERED: LORazepam 2 MG/ML SDV IVPUSH PRN (20:00)
[2022-05-23] MEDS ORDERED: Ondansetron 4 MG/2 ML SDV IVPUSH PRN (21:00)
[2022-05-23] MEDS ORDERED: Folic Acid 1 MG Tab PO SCH (21:00)
[2022-05-23] MEDS ORDERED: Pantoprazole 40 MG Tab.CR PO SCH (21:00)
[2022-05-23] MEDS: LORazepam 2 MG/ML SDV IVPUSH PRN ×3 (21:21→23:39)
[2022-05-23] MEDS ORDERED: Thiamine 200 MG/2 ML MDV IVPUSH ONE (21:45)
[2022-05-23] MEDS: Multivitamins with Iron/Calcium/Folic Acid/Minerals Tab PO SCH (22:46)
[2022-05-23] MEDS: levETIRAcetam 500 MG Tab PO SCH (22:47)
[2022-05-24] MEDS: LORazepam 2 MG/ML SDV IVPUSH PRN ×3 (00:57→03:43)
[2022-05-24] MEDS: Sodium Chloride 0.45% 1,000 ML IV SCH ×2 (02:09→09:52)
[2022-05-24 07:07] LABS: ANION GAP 11.6 mEq/L (7-13)
[2022-05-24] MEDS ORDERED: Sodium Chloride 0.9% 500 ML IV SCH (08:30)
[2022-05-24] MEDS ORDERED: Thiamine 100 MG Tab PO SCH (09:00)
[2022-05-24] MEDS ORDERED: Enoxaparin 40 MG/0.4 ML Syringe SUBCUT SCH (09:00)
[2022-05-24 09:08] VITALS: BP 104/71; PULSE 97
[2022-05-24] MEDS: levETIRAcetam 500 MG Tab PO SCH (09:42)
[2022-05-24] MEDS: Multivitamins with Iron/Calcium/Folic Acid/Minerals Tab PO SCH (09:43)
== END 2022-05-24 13:10 | disposition left against medical advice (07) ==
LOC: DL.ED 13:30 → DL.MS 17:36 → DL.ED 17:58
PROVIDERS: ADMIT Internal Medicine; ATTEND Internal Medicine
DX: F10.129 Alcohol abuse with intoxication, unspecified (principal); G40.909 Epilepsy, unspecified, not intractable, without status epilepticus; E87.0 Hyperosmolality and hypernatremia; R74.8 Abnormal levels of other serum enzymes; Z79.899 Other long term (current) drug therapy; Z88.0 Allergy status to penicillin; Z88.8 Allergy status to other drugs, medicaments and biological substances
CPT/HCPCS: 36415; 80053; 80143; 80179; 80305-QW; 80307; 81001; 82947; 83735; 84100; 84145; 85025; 85610; 85730; 96361; 96365; 96372; 96375; 96376; 99222; 99238; 99284; 99285-25; A9270-GY; C1758; G0378; J1650; J1953; J2060; J2405; J3411; J3490; J7040; J7060; J7120

== ENCOUNTER 2022-06-03 23:02 | Emergency (ER) | payer MEDICARE, MEDICAID ==
[2022-06-03 23:30] VITALS: BP 121/83; PULSE 93
[2022-06-03] MEDS ORDERED: Lactated Ringers 1,000 ML IV ONE (23:50)
[2022-06-03] MEDS ORDERED: Thiamine 100 MG in Sodium Chloride 0.9% 100 ML IV ONE (23:50)
[2022-06-04 00:58] LABS: ANION GAP 12.9 mEq/L (7-13)
[2022-06-04] MEDS ORDERED: Bacitracin Oint 1 GM U/D Packet TOP ONE (01:22)
== END 2022-06-04 01:50 | disposition home or self-care (01) ==
LOC: DL.ED 23:02
DX: S80.211A Abrasion, right knee, initial encounter (principal); S80.212A Abrasion, left knee, initial encounter; T69.9XXA Effect of reduced temperature, unspecified, initial encounter; F10.920 Alcohol use, unspecified with intoxication, uncomplicated; F17.210 Nicotine dependence, cigarettes, uncomplicated; Z88.0 Allergy status to penicillin; Z91.018 Allergy to other foods; Y90.6 Blood alcohol level of 120-199 mg/100 ml; W19.XXXA Unspecified fall, initial encounter
CPT/HCPCS: 36415; 73562-LT; 73562-RT; 80053; 80307; 85025; 96361; 96365; 99283-25; 99284; A9270-GY; J3411; J7120

== ENCOUNTER 2023-06-11 23:34 | Emergency (ER) | payer MEDICARE, MEDICAID ==
[2023-06-11 23:41] VITALS: BP 120/81; PULSE 103
== END 2023-06-12 00:09 | disposition home or self-care (01) ==
LOC: DL.ED 23:34
DX: S01.21XA Laceration without foreign body of nose, initial encounter (principal); Z88.0 Allergy status to penicillin; Z91.018 Allergy to other foods; Z88.8 Allergy status to other drugs, medicaments and biological substances; Y04.2XXA Assault by strike against or bumped into by another person, initial encounter
CPT/HCPCS: 12011; 99282

== ENCOUNTER 2023-07-03 08:56 | Emergency (ER) | payer MEDICARE, MEDICAID ==
[2023-07-03 09:13] VITALS: BP 120/88; PULSE 110
[2023-07-03] MEDS: Naproxen 250 MG Tab PO ONE (09:32)
== END 2023-07-03 11:40 ==
LOC: DL.ED 08:56
DX: S22.41XA Multiple fractures of ribs, right side, initial encounter for closed fracture (principal); S00.83XA Contusion of other part of head, initial encounter; Z88.0 Allergy status to penicillin; Z91.018 Allergy to other foods; Z88.8 Allergy status to other drugs, medicaments and biological substances; Y04.2XXA Assault by strike against or bumped into by another person, initial encounter
CPT/HCPCS: 70220; 71101; 99282; 99284; A9270